=== PATIENT | female | born 1955 ===

== ENCOUNTER 2024-10-08 13:45 | Emergency (ER) | payer OTHER, SELFPAY ==
[2024-10-08 13:50] VITALS: BP 122/47; BMI 22.4
[2024-10-08 13:53] LABS: Glucose - Point of Care 157 mg/dl (70-99)
[2024-10-08 14:00] VITALS: BP 115/57
[2024-10-08 14:25] LABS: Hematocrit 40.8 % (37.0-47.0); Hemoglobin 13.6 g/dL (12.0-16.0); Mean Corp Hgb Conc. 33.3 g/dL (33.0-37.0); Mean Corpuscular Volume 85.9 fL (81.0-99.0); Platelet Count 267 10^3/uL (130-400); Red Cell Dist. Width 13.3 % (11.5-14.5)
[2024-10-08 14:30] LABS: ALT (SGPT) 24 U/L (0-35); AST (SGOT) 24 U/L (14-36); Albumin 4.7 g/dl (3.5-5.0); Alkaline Phosphatase 45 U/L (38-126); Blood Urea Nitrogen 20 mg/dl (7-17); Calcium 10.2 mg/dl (8.4-10.2); Carbon Dioxide 21 mmol/L (22-30); Chloride 107 mmol/L (98-107); Estimated Creatinine Clearance 63 ml/min; Glucose 159 mg/dl (70-99); Potassium 3.7 mmol/L (3.5-5.1); Sodium 138 mmol/L (135-145); Total Protein 7.5 g/dl (6.3-8.2); eGFR > 60.00
[2024-10-08 14:37] LABS: Nucleated Red Blood Cells % 0 %
[2024-10-08 14:47] LABS: Troponin I < 0.012 ng/ml
[2024-10-08 15:00] VITALS: BP 107/88
--- NOTE | 2024-10-08 15:00 | ED.GENMED ---
History of Present Illness
General
Chief Complaint: Anxiety
Source: patient
Exam Limitations: none
Time Seen by Provider: 10/08/24 14:27
History of Present Illness
History of Present Illness:
68yoF with a history of type 2 diabetes, hyperlipidemia, anxiety presenting with her family members via EMS for evaluation after syncopal episode. Patient was at [facility] this afternoon around 12:30 PM. She was standing and speaking with her son
when she suddenly felt warm and felt like she had to lie down. Patient then had the urge to go the bathroom so she stood up quickly and lost consciousness. Family was able to catch her. She was unconscious for a few seconds. She had some minor
palpitations in triage but denies any chest pain or shortness of breath. Patient is now feeling significantly improved and is requesting to be discharged. She has a history of a similar episode about 3 years ago which was attributed to anxiety.
Phy Exam
General Physical Exam
General Presentation: well appearing and no apparent distress
General Skin: warm and dry
General Habitus: normal
General Mental: alert
ENT Exam
ENT Exam: normocephalic
Cardiovascular Exam
Cardiovascular Exam: regular rate/rhythm and no murmur
Pulmonary Exam
Pulmonary Exam: lungs clear, no respiratory distress, no rales, no crackles, no rhonchi and no wheezing
Neurological Exam
Neurological Exam: alert and normal gait
Babs Coma Scale
Eye Opening: Spontaneous
Verbal Response: Oriented
Motor Response: Obeys Commands
GCS Total Score: 15
Skin Exam
Skin Exam: normal color and warm/dry
Psychiatric Exam
Psychiatric Exam: normal mood/affect
Course
Orders/Labs/Results
Orders:
Orders
10/08/24 13:50
Electrocardiogram (*1) Urgent
Reason for Study: Fatigue / Weakness
EKG- Treatment ONCE
10/08/24 14:00
CMP [Comprehensive Metabolic Panel] Urgent
Complete Blood Count/With Diff Urgent
Troponin I Urgent
Abnormal Lab Results
10/08/24 10/08/24
13:52 14:00
Abs Immat Gran (auto) 0.1 H 10^3/uL
(0-0.05)
Absolute Lymphs (auto) 4.5 H 10^3/uL
(1.2-3.4)
Immature Gran % 0.6 H %
(0-0.5)
Neutrophils % 38.8 L %
(42.2-75.2)
Lymphocytes % 51.2 H %
(20.5-51.1)
Carbon Dioxide 21 L mmol/L
(22-30)
BUN 20 H mg/dl
(7-17)
Creatinine 0.5 L mg/dL
(0.6-1.0)
Glucose 159 H mg/dl
(70-99)
POC Glucose 157 H mg/dl
(70-99)
10/08/24 14:00
10/08/24 14:00
Vital Signs
Initial and Last Documented VS:
Initial Vital Signs
Temp Pulse Resp BP Pulse Ox
97.7 F 65 16 122/47 98
10/08/24 13:50 10/08/24 13:50 10/08/24 13:50 10/08/24 13:50 10/08/24 13:50
Last Documented Vital Signs
Temp Pulse Resp BP Pulse Ox
97.7 F 79 13 107/88 100
10/08/24 13:50 10/08/24 15:15 10/08/24 15:15 10/08/24 15:00 10/08/24 15:30
MDM/Problems Addressed
Differential Diagnosis Includes:
68yoF here after a syncopal episode. Preceded by lightheadedness and feeling warm while standing. No associated CP/SOB. Now asymptomatic and wants to go home. VSS. She is well appearing in no distress. Exam reassuring. Differential diagnosis
includes but is not limited to: Orthostatic hypotension, vasovagal episode, doubt cardiogenic syncope
Workup initiated in triage. Hemoglobin normal. Glucose 159. EKG shows normal sinus rhythm without ischemic changes or ectopy and troponin normal. Recommended delta troponin/EKG which she is declining stating she feels fine and just wants to
leave. Family also comfortable with discharge. She is ambulating with a steady gait. Advised close f/u with PCP and ED return precautions reviewed.
*Pulse Oximetry
SaO2: 98
Oxygen Mode of Delivery: Room air
Patient hypoxic: no (98%)
*EKG
Interpreted by ED Provider?: Yes
EKG Intrepretation Date: 10/08/24
Heart Rate: 65
Rate: normal
Rhythm: sinus
[place]: normal axis
Interval: normal interval
QRS Pattern: normal QRS
Ischemia: no ischemia
*Critical Care Note
Total Time (30-74mins, 75-104mins- exclusive of procedures): Not Applicable
ED Attending Note
-
Portions of this chart may have been created with voice recognition software.� Occasional wrong word or��sound alike� substitutions may have occurred due to the inherent limitations of voice recognition software.
Discharge Plan
Departure
Patient Disposition: Home (Routine Discharge)
Date of Disposition: 10/08/24
Time of Disposition: 15:26
Patient with high blood pressure during this ER visit?: No
Discharge Problem:
Syncope
Instructions: Syncope (fainting) - Discharge instructions
Referrals:
Santos Watts MD [Family Provider, Internal Medicine]
Activity Restrictions/Additional Instructions:
Drink plenty of fluids and stay hydrated. Change positions slowly.
Please follow-up with your family doctor in the next 2 to 3 days. Return to the ER immediately with any new or worsening symptoms.
Interventions
Interventions:
*Risk Screen - Suicide Last Done: 10/08/24 15:36
*General Assessment Last Done: 10/08/24 13:50
*Neglect/Abuse Screening Last Done: 10/08/24 15:36
*ED- Fall Risk Assessment Last Done: 10/08/24 13:50
*ED COVID-19 Vaccine History Last Done: 10/08/24 13:50
*Nursing Disposition Last Done: 10/08/24 15:30
ED-Psychological Assessment Last Done: 10/08/24 13:58
Discharge Date and Time
Discharge Date/Time: 10/08/24 15:30
Print Language: [id number]
== END 2024-10-08 15:30 | disposition home or self-care (01) ==
LOC: EMR 13:45
PROVIDERS: Emergency Medicine; EMERGENCY PHYSICIAN Emergency Medicine; FAMILY PHYSICIAN Internal Medicine
DX: R55 Syncope and collapse (principal); E11.9 Type 2 diabetes mellitus without complications; E78.5 Hyperlipidemia, unspecified
CPT/HCPCS: 99284; 80053; 82962; 84484; 85025; 93005